=== PATIENT | female | born 1965 | race Hispanic/Latino ===

== ENCOUNTER → 2017-12-22 | Outpatient (REF) | payer OTHER ==
[2017-12-22 12:01] LABS: HEMATOCRIT 32.6 % (36.0-47.0); HEMOGLOBIN 10.1 g/dl (12.0-15.5); MEAN CORPUSCULAR VOLUME 90.3 fl (80.0-96.0); PLATELET COUNT, AUTOMATED 445 10^3/uL (150-450); RED BLOOD COUNT 3.61 10^6/uL (4.00-5.40); RED CELL DISTRIBUTION WIDTH 16.1 % (11.5-14.5); WHITE BLOOD COUNT 5.1 10^3/uL (4.0-10.0)
[2017-12-22 12:16] LABS: VITAMIN B12 LEVEL 421 PG/ML (247-911)
[2017-12-22 12:17] LABS: ALBUMIN 3.5 GM/DL (3.2-5.2); ALBUMIN/GLOBULIN RATIO 1.17 (1.00-1.93); ALKALINE PHOSPHATASE 98 U/L (45-117); ALT/SGPT 30 U/L (12-78); ANION GAP 8 MEQ/L (8-16); AST/SGOT 20 U/L (7-37); BILIRUBIN,TOTAL 0.3 MG/DL (0.2-1.0); BLOOD UREA NITROGEN 11 MG/DL (7-18); CALCIUM LEVEL 8.6 MG/DL (8.5-10.1); CARBON DIOXIDE LEVEL 28 MEQ/L (21-32); CHLORIDE LEVEL 108 MEQ/L (98-107); CHOLESTEROL LEVEL 174 MG/DL (<200); CHOLESTEROL RISK RATIO 2.852 (<5); CREATININE FOR GFR 0.55 MG/DL (0.55-1.30); FERRITIN 5 NG/ML (8-252); FOLATE 8.5 NG/ML (>5.4); FREE T4 0.79 NG/DL (0.76-1.46); GLOMERULAR FILTRATION RATE > 60.0 (>51); GLUCOSE, FASTING 87 MG/DL (70-100); HDL CHOLESTEROL 61 MG/DL (>40); IRON (FE) 25 UG/DL (50-170); LDL CHOLESTEROL 100.8 MG/DL (<100); NON-HDL-C 113 MG/DL; POTASSIUM SERUM 4.2 MEQ/L (3.5-5.1); SODIUM LEVEL 144 MEQ/L (136-145); TOTAL IRON BINDING CAPACITY 416 UG/DL (250-450); TOTAL PROTEIN 6.5 GM/DL (6.4-8.2); TRIGLYCERIDES LEVEL 61 MG/DL (<150)
[2017-12-22 12:54] LABS: HEPATITIS C VIRUS ABY INDEX 0.1 INDEX (<0.8)
[2017-12-22 12:55] LABS: HIV 1&2 SCREEN CENTAUR NEGATIVE (NEGATIVE)
[2017-12-22 13:48] LABS: CHLAMYDIA DNA AMPLIFICATION NEGATIVE (NEGATIVE); GC DNA AMPLIFICATION NEGATIVE (NEGATIVE)
[2017-12-22 14:49] LABS: ESTIMATED AVERAGE GLUCOSE 120 MG/DL (60-110); HEMOGLOBIN A1c 5.8 %
== END ==
LOC: M SFHCPLAZ 08:44
DX: Z98.84 Bariatric surgery status (principal); Z11.3 Encounter for screening for infections with a predominantly sexual mode of transmission; Z11.59 Encounter for screening for other viral diseases; E11.9 Type 2 diabetes mellitus without complications; Z11.4 Encounter for screening for human immunodeficiency virus [HIV]; Z13.220 Encounter for screening for lipoid disorders
CPT/HCPCS: 82746

== ENCOUNTER → 2017-12-31 | Outpatient (CLI) | payer OTHER | LOC: M RAD 08:12 | DX: Z12.31 Encounter for screening mammogram for malignant neoplasm of breast (principal) | CPT/HCPCS: 77067 ==

== ENCOUNTER → 2018-01-11 | Outpatient (CLI) | payer OTHER | LOC: M SMT 08:39 | DX: Z87.442 Personal history of urinary calculi (principal) ==

== ENCOUNTER → 2018-01-13 | Outpatient (CLI) | payer OTHER | LOC: M RAD 07:49 | DX: R16.0 Hepatomegaly, not elsewhere classified (principal) | CPT/HCPCS: 76705 ==

== ENCOUNTER → 2018-01-17 | Outpatient (CLI) | payer OTHER | LOC: M RAD 07:06 | DX: R51 Headache (principal) | CPT/HCPCS: 70551 ==

== ENCOUNTER → 2018-01-19 | Outpatient (REF) | payer OTHER ==
[2018-01-21 14:14] LABS: HPV HYBRID CAPTURE II Negative (Negative)
== END ==
LOC: M LAB REF 13:38
DX: Z12.4 Encounter for screening for malignant neoplasm of cervix (principal)

== ENCOUNTER → 2018-02-03 | Outpatient (CLI) | payer OTHER | LOC: M RAD 16:30 | DX: K76.89 Other specified diseases of liver (principal); Z53.8 Procedure and treatment not carried out for other reasons ==

== ENCOUNTER → 2018-02-22 | Outpatient (CLI) | payer OTHER ==
[2018-02-22 20:12] LABS: BLOOD UREA NITROGEN 11 MG/DL (7-18)
[2018-02-22 20:12] LABS: CREATININE FOR GFR 0.59 MG/DL (0.55-1.30); GLOMERULAR FILTRATION RATE > 60.0 (>51)
== END ==
LOC: M WUC 17:49
DX: Z01.812 Encounter for preprocedural laboratory examination (principal)

== ENCOUNTER → 2018-02-22 | Outpatient (CLI) | payer OTHER ==
[2018-02-22 20:01] LABS: HEMATOCRIT 32.9 % (36.0-47.0); HEMOGLOBIN 10.6 g/dl (12.0-15.5); MEAN CORPUSCULAR HGB CONC 32.2 g/dl (32.0-36.5); PLATELET COUNT, AUTOMATED 434 10^3/uL (150-450); RED BLOOD COUNT 3.78 10^6/uL (4.00-5.40); RED CELL DISTRIBUTION WIDTH 15.6 % (11.5-14.5); RETIC HEMOGLOBIN EQUIVALENT 30.1 pg (24-36); RETICULOCYTE # 38.6 10^9/L (17-77); WHITE BLOOD COUNT 7.4 10^3/uL (4.0-10.0)
[2018-02-22 20:44] LABS: FERRITIN 6 NG/ML (8-252); IRON (FE) 34 UG/DL (50-170); PERCENT SATURATION 8.5 % (13.2-45.0); TOTAL IRON BINDING CAPACITY 401 UG/DL (250-450)
[2018-02-22 20:53] LABS: TOTAL 25(OH) VITAMIN D 50.7 NG/ML (30.0-100.0)
== END ==
LOC: M WUC 17:51
DX: D50.9 Iron deficiency anemia, unspecified (principal); E55.9 Vitamin D deficiency, unspecified

== ENCOUNTER → 2018-02-24 | Outpatient (CLI) | payer OTHER ==
[~2018-02-24] MED LIST: PROHANCE 279.3MG/ML 15ML VIAL (A9576) As Ordered; PROHANCE 279.3MG/ML 5ML VIAL (A9576) As Ordered
== END ==
LOC: M RAD 07:53
DX: K44.9 Diaphragmatic hernia without obstruction or gangrene (principal); R16.0 Hepatomegaly, not elsewhere classified
CPT/HCPCS: A9576

== ENCOUNTER 2018-03-10 08:57 | Day surgery (SDC) | payer OTHER ==
[2018-03-10] MEDS ORDERED: PROPOFOL 200 MG/20 ML VIAL As Ordered ×2 (10:55→10:58)
== END 2018-03-10 11:50 | disposition home or self-care (01) ==
LOC: M OPP 11:50
DX: Z12.11 Encounter for screening for malignant neoplasm of colon (principal); E11.9 Type 2 diabetes mellitus without complications; D64.9 Anemia, unspecified; R23.3 Spontaneous ecchymoses; M12.9 Arthropathy, unspecified; Z79.899 Other long term (current) drug therapy; Z88.8 Allergy status to other drugs, medicaments and biological substances; Z91.030 Bee allergy status; Z98.84 Bariatric surgery status; Z87.442 Personal history of urinary calculi; Z98.890 Other specified postprocedural states
CPT/HCPCS: 45378

== ENCOUNTER → 2018-04-12 | Outpatient (REF) | payer OTHER | LOC: M SFHCPLAZ 10:20 | DX: J02.9 Acute pharyngitis, unspecified (principal) ==

== ENCOUNTER 2018-07-01 11:02 | Day surgery (SDC) | payer OTHER ==
[~2018-07-01] VITALS: Ht 170.2 cm; Wt 95.7 kg
[~2018-07-01 11:02] MED LIST changes: +ALBU83IN INH; +CYCL5TAB PO; +DULO30CA47 PO; +EPIN0.3I11; +FERR140T2 PO; +GABA-843 PO; +HYDR200T3; +IMIT50TA PO; +LIDOCAINE 2% INJ 100 MG/5 ML SDV (FOR ANES.) As Ordered ONE; +MONT10TA2 PO; +PROAAER10; -PROHANCE 279.3MG/ML 15ML VIAL (A9576) As Ordered; -PROHANCE 279.3MG/ML 5ML VIAL (A9576) As Ordered; +PROPOFOL 200 MG/20 ML VIAL As Ordered ONE; +VITA50005 PO; +VITA500T3 PO
[2018-07-01] MEDS ORDERED: NS 1,000 ML IV ONE (12:00)
[2018-07-01] MEDS ORDERED: PROPOFOL 200 MG/20 ML VIAL As Ordered ONE ×2 (13:26→13:43)
--- NOTE | 2018-07-01 13:46 | ROOR ---
Patient Name: Madhuri Nicole Procedure Date: 07/01/2018 1:01 PM Date of : 1965 Age: 52 Room: [facility] Gender: Female Note Status: Finalized Procedure: Upper GI endoscopy Indications: Iron deficiency anemia Providers: Anuj CONDON MD Referring MD: KATARZYNA NORRIS Requesting Provider: Medicines: Monitored Anesthesia Care Complications: No immediate complications. Procedure: Pre-Anesthesia Assessment: - The heart rate, respiratory rate, oxygen saturations, blood pressure, adequacy of pulmonary ventilation, and response to care were monitored throughout the procedure. The Endoscope was introduced through the mouth, and advanced to the jejunum. The upper GI endoscopy was accomplished without difficulty. The patient tolerated the procedure well. Findings: The examined esophagus was normal. 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 The gastrojejunal anastomosis was characterized by healthy appearing mucosa. The examined jejunum was normal. Biopsies for histology were taken with a cold forceps for evaluation of celiac disease. Impression: - Normal esophagus. - Lloyd-en-Y gastrojejunostomy with gastrojejunal anastomosis characterized by healthy appearing mucosa. - Tubular appearance of gastric remnant, but this is otherwise normal. Biopsied to confirm gastric mucosa. - Normal examined jejunum. Biopsied. Recommendation: - Await pathology results. - Telephone endoscopist for pathology results in 2 weeks. - Recommend an iron supplement for the rest of the patient's life. - Return to referring physician as previously scheduled. Anuj Condon MD Anuj CONDON MD 07/01/2018 1:45:42 PM This report has been signed electronically. Number of Addenda: 0 Note Initiated On: 07/01/2018 1:01 PM Estimated Blood Loss: Estimated blood loss: none.
--- NOTE | 2018-07-01 13:49 | ROOR ---
Patient Name: Madhuri Nicole Procedure Date: 07/01/2018 1:01 PM Date of : 1965 Age: 52 Room: [facility] Gender: Female Note Status: Finalized Procedure: Colonoscopy Indications: Iron deficiency anemia Providers: Anuj CONDON MD Referring MD: KATARZYNA NORRIS Requesting Provider: Medicines: Monitored Anesthesia Care Complications: No immediate complications. Procedure: Pre-Anesthesia Assessment: - The heart rate, respiratory rate, oxygen saturations, blood pressure, adequacy of pulmonary ventilation, and response to care were monitored throughout the procedure. The Colonoscope was introduced through the anus and advanced to 5 cm into the ileum. The colonoscopy was performed without difficulty. The patient tolerated the procedure well. The quality of the bowel preparation was fair. Findings: The perianal and digital rectal examinations were normal. A 10 mm polyp was found in the splenic flexure. The polyp was semi-sessile. The polyp was removed with a cold snare. Resection and retrieval were complete. The colon (entire examined portion) was redundant. The exam was otherwise without abnormality on direct and retroflexion views. Impression: - Preparation of the colon was fair. - One 10 mm polyp at the splenic flexure, removed with a cold snare. Resected and retrieved. - Redundant colon. - The examination was otherwise normal on direct and retroflexion views. Recommendation: - Repeat colonoscopy in 3 years because the bowel preparation was suboptimal. - Repeat colonoscopy in 3 years for adenoma surveillance. - (Will need additional preparation for next colonoscopy) Anuj Condon MD Anuj CONDON MD 07/01/2018 1:48:22 PM This report has been signed electronically. Number of Addenda: 0 Note Initiated On: 07/01/2018 1:01 PM Estimated Blood Loss: Estimated blood loss: none.
[2018-07-01 14:05] VITALS: BP 122/67
== END 2018-07-01 14:18 | disposition home or self-care (01) ==
LOC: M OPP 11:02
PROVIDERS: ATTEND Internal Medicine Gastroenterology
DX: D50.9 Iron deficiency anemia, unspecified (principal); D12.3 Benign neoplasm of transverse colon; Q43.8 Other specified congenital malformations of intestine; G47.30 Sleep apnea, unspecified; Z98.0 Intestinal bypass and anastomosis status; Z79.899 Other long term (current) drug therapy; Z88.0 Allergy status to penicillin; Z91.030 Bee allergy status; Z87.891 Personal history of nicotine dependence

== ENCOUNTER → 2018-07-20 | Outpatient (CLI) | payer OTHER ==
[~2018-07-20] MED LIST changes: -LIDOCAINE 2% INJ 100 MG/5 ML SDV (FOR ANES.) As Ordered ONE; -PROPOFOL 200 MG/20 ML VIAL As Ordered ONE
[2018-07-20 19:43] LABS: HEMOGLOBIN 11.2 g/dl (12.0-15.5); MEAN CORPUSCULAR HEMOGLOBIN 29.7 pg (27.0-33.0); MEAN CORPUSCULAR VOLUME 92.8 fl (80.0-96.0); PLATELET COUNT, AUTOMATED 372 10^3/uL (150-450); RED BLOOD COUNT 3.77 10^6/uL (4.00-5.40); WHITE BLOOD COUNT 7.3 10^3/uL (4.0-10.0)
[2018-07-20 20:29] LABS: TOTAL 25(OH) VITAMIN D 23.4 NG/ML (30.0-100.0)
== END ==
LOC: M WUC 16:24
PROVIDERS: ATTEND Physician Assistant
DX: E55.9 Vitamin D deficiency, unspecified (principal); D50.9 Iron deficiency anemia, unspecified

== ENCOUNTER → 2018-07-21 | Outpatient (CLI) | payer OTHER ==
--- NOTE | 2018-07-21 20:15 | REP ---
Lumbar spine five views: Vertebral body heights, interspacing alignment are normal. There is no spondylolysis. There is mild grade 1 L4 spondylolisthesis, likely degenerative. There is facet osteoarthritis, more advanced at the lower lumbar levels. The pedicles and sacroiliac articulations are unremarkable. There is an IUD in the pelvis. There are surgical clips superimposed over the sacrum and in the abdominal left upper quadrant. Impression: Facet osteoarthritis. Mild grade 1 degenerative L4 spondylolisthesis. Electronically Signed by Alen Rosenberg MD 07/21/2018 08:06 P
== END ==
LOC: M WUC 17:16
PROVIDERS: ATTEND Physician Assistant
DX: M47.896 Other spondylosis, lumbar region (principal); M51.36 Other intervertebral disc degeneration, lumbar region

== ENCOUNTER → 2018-11-23 | Outpatient (CLI) | payer OTHER ==
[~2018-11-23] MED LIST changes: +CYAN500T8 PO; -VITA500T3 PO
--- NOTE | 2018-11-23 16:07 | REP ---
Left knee six views : There is no fracture or dislocation. Mineralization and joint spaces are normal. There are no calcifications or foreign bodies. Impression: Negative left knee . Electronically Signed by Alen Rosenberg MD 11/23/2018 12:55 P
== END ==
LOC: M LRY 12:39
PROVIDERS: ATTEND Nurse Practitioner Family
DX: S89.92XA Unspecified injury of left lower leg, initial encounter (principal)

== ENCOUNTER → 2018-12-10 | Outpatient (CLI) | payer OTHER ==
[2018-12-10 17:27] LABS: HEMOGLOBIN A1c 5.8 %
== END ==
LOC: M WUC 11:01
PROVIDERS: ATTEND Family Medicine
DX: E11.9 Type 2 diabetes mellitus without complications (principal)

== ENCOUNTER → 2018-12-10 | Outpatient (CLI) | payer OTHER ==
[2018-12-10 17:08] LABS: HEMATOCRIT 40.4 % (36.0-47.0); HEMOGLOBIN 13.2 g/dl (12.0-15.5); MEAN CORPUSCULAR HEMOGLOBIN 31.7 pg (27.0-33.0); MEAN CORPUSCULAR HGB CONC 32.7 g/dl (32.0-36.5); MEAN CORPUSCULAR VOLUME 97.1 fl (80.0-96.0); PLATELET COUNT, AUTOMATED 337 10^3/uL (150-450); RED BLOOD COUNT 4.16 10^6/uL (4.00-5.40); WHITE BLOOD COUNT 7.1 10^3/uL (4.0-10.0)
[2018-12-10 17:13] LABS: ALBUMIN 3.8 GM/DL (3.2-5.2); ALT/SGPT 25 U/L (12-78); BILIRUBIN,TOTAL 0.4 MG/DL (0.2-1.0); BLOOD UREA NITROGEN 9 MG/DL (7-18); CALCIUM LEVEL 8.3 MG/DL (8.5-10.1); CARBON DIOXIDE LEVEL 27 MEQ/L (21-32); CHLORIDE LEVEL 109 MEQ/L (98-107); CHOLESTEROL LEVEL 171 MG/DL (<200); CHOLESTEROL RISK RATIO 2.671 (<5); CREATININE FOR GFR 0.61 MG/DL (0.55-1.30); FERRITIN 10 NG/ML (8-252); FREE T4 0.87 NG/DL (0.76-1.46); GLOMERULAR FILTRATION RATE > 60.0 (>51); GLUCOSE, FASTING 80 MG/DL (70-100); HDL CHOLESTEROL 64 MG/DL (>40); IRON (FE) 80 UG/DL (50-170); LDL CHOLESTEROL 95 MG/DL (<100); NON-HDL-C 107 MG/DL; PERCENT SATURATION 20.2 % (13.2-45.0); POTASSIUM SERUM 3.8 MEQ/L (3.5-5.1); SODIUM LEVEL 143 MEQ/L (136-145); TOTAL IRON BINDING CAPACITY 397 UG/DL (250-450); TRIGLYCERIDES LEVEL 62 MG/DL (<150)
[2018-12-12 11:53] LABS: TOTAL 25(OH) VITAMIN D 25.9 NG/ML (30.0-100.0)
[2018-12-12 11:54] LABS: FOLATE 7.5 NG/ML (>5.4); VITAMIN B12 LEVEL 400 PG/ML (247-911)
== END ==
LOC: M WUC 11:03
PROVIDERS: ATTEND Physician Assistant
DX: D50.9 Iron deficiency anemia, unspecified (principal); E78.5 Hyperlipidemia, unspecified; E55.9 Vitamin D deficiency, unspecified; Z98.84 Bariatric surgery status

== ENCOUNTER → 2018-12-21 | Outpatient (CLI) | payer OTHER ==
[2018-12-21 11:09] LABS: MALB URINE SIEMENS 19.5 MG/L; MAU/CREAT RATIO 13.8 MCG/MG (0.0-30.0)
--- NOTE | 2018-12-21 11:16 | REP ---
REASON FOR EXAM: Right flank pain. COMPARISON: Exam from an outside institution of 11/02/2014. The lung bases are clear and unchanged. Limited evaluation of the solid intra-abdominal organs and gallbladder shows no significant change from the prior exam. Limited evaluation of the pancreas, adrenal glands, and kidneys shows no gross abnormalities. Calcification seen previously in the left kidney is no longer present. There is no hydronephrosis or hydroureter. There are no ureteroliths. The calcification seen previously in the proximal left ureter is no longer present. There are no urinary bladder calcifications. There is a T-shaped radiodensity in the uterus, consistent with an IUD. This was not present on the prior exam. There is no free fluid or free air in the abdomen or pelvis. The abdominal aorta and para-aortic regions are unchanged, and again seen to be within normal limits. Limited evaluation of the intra-abdominal and intrapelvic bowel loops and their mesenteries shows no gross abnormalities. There is no free fluid or free air. The appendix is unremarkable in appearance. There has been previous bariatric surgery. Bone window technique throughout the exam shows the osseous structures to be stable and intact. Chronic spinal degenerative changes are noted, status quo. IMPRESSION: There is no evidence of acute intra-abdominal or intrapelvic disease. The appendix has increased in size from the prior exam, however, there is no fatty infiltration in the mesoappendix and there is no free fluid in the mesoappendix. There is no abnormal pericecal fatty infiltration. The finding is equivocal for acute appendicitis and needs to be correlated clinically. Electronically Signed by Froylan Last DO 12/21/2018 12:33 P
== END ==
LOC: M RAD 09:43
PROVIDERS: ATTEND Family Medicine
DX: E11.9 Type 2 diabetes mellitus without complications (principal)

== ENCOUNTER → 2019-01-23 | Outpatient (REF) | payer OTHER ==
[2019-01-25 15:34] LABS: HPV HYBRID CAPTURE II Negative (Negative)
== END ==
LOC: M LAB REF 20:13
PROVIDERS: ATTEND Advanced Practice Midwife
DX: Z12.4 Encounter for screening for malignant neoplasm of cervix (principal)
CPT/HCPCS: 87624; G0123

== ENCOUNTER → 2019-01-24 | Outpatient (CLI) | payer OTHER ==
--- NOTE | 2019-01-24 08:04 | REP ---
BILATERAL SCREENING DIGITAL MAMMOGRAM WITH 3D TOMOSYNTHESIS: There are no palpable abnormalities or other breast complaints. The the patient states she had a clinical breast examination January 27, 2019. The Tyrer-Cuzick Score is: 12.6% . Comparisons are 02/07/2016 and 12/31/2017. There are scattered areas of fibroglandular density. There is no dominant mass, micro calcific cluster or architectural distortion that would indicate malignancy. There are no additional findings on 3D tomosynthesiss. There is no change from the prior study. Impression: BIRADS/ACR category 1 mammogram. Negative. Recommendation: Routine annual screening mammography. This mammogram was interpreted with the aid of a FDA approved computer-aided detection system. A. Negative mammogram reports should not delay biopsy if a dominant or clinically suspicious mass is present. B. Not all breast cancers are identified by mammography or tomosynthesis. C. Adenosis and dense breasts may obscure an underlying neoplasm. Patient letter M1. Electronically Signed by Alen Rosenberg MD 01/24/2019 07:56 A
== END ==
LOC: M RAD 07:05
PROVIDERS: ATTEND Advanced Practice Midwife
DX: Z12.31 Encounter for screening mammogram for malignant neoplasm of breast (principal)

== ENCOUNTER → 2019-10-20 | Outpatient (CLI) | payer OTHER ==
[~2019-10-20] MED LIST changes: -MONT10TA2 PO; +MONT10TA4 PO
--- NOTE | 2019-10-20 16:27 | REP ---
LEFT SHOULDER, THREE VIEWS: There is no evidence of an acute fracture, dislocation or intrinsic bone disease. IMPRESSION: No fracture or dislocation. Electronically Signed by Alen Leal MD 10/24/2019 06:47 P
--- NOTE | 2019-10-20 16:59 | REP ---
LEFT ELBOW, FOUR VIEWS: Four views, left elbow performed. There is a nondisplaced fracture of the radial head, which is intra-articular. No other acute fracture or dislocation is seen. Small calcific density at the medial joint margin probably represents a ligamentous calcification or old avulsion fracture. There is no associated joint effusion. IMPRESSION: Nondisplaced radial head fracture. Fracture is intra-articular. Electronically Signed by Alen Leal MD 10/24/2019 06:51 P
== END ==
LOC: M LRY 15:25
PROVIDERS: ATTEND Nurse Practitioner Family
DX: S52.125A Nondisplaced fracture of head of left radius, initial encounter for closed fracture (principal); S49.92XA Unspecified injury of left shoulder and upper arm, initial encounter

== ENCOUNTER → 2020-01-09 | Outpatient (CLI) | payer OTHER ==
[~2020-01-09] MED LIST changes: +AMBI5TAB PO; +D31000TA2 PO; +MULTCAP PO; +PERCOCET PO
[2020-01-09 12:51] LABS: BASO % 0.7 % (0.0-1.0); EOS # 0.2 10^3/uL (0.0-0.5); EOS % 2.5 % (0.0-3.0); HEMATOCRIT 38.3 % (36.0-47.0); HEMOGLOBIN 12.3 g/dl (12.0-15.5); LYMPH # 2.3 10^3/uL (1.5-5.0); LYMPH % 38.6 % (24.0-44.0); MEAN CORPUSCULAR HEMOGLOBIN 30.8 pg (27.0-33.0); MEAN CORPUSCULAR HGB CONC 32.1 g/dl (32.0-36.5); MEAN CORPUSCULAR VOLUME 95.8 fl (80.0-96.0); MONO # 0.6 10^3/uL (0.0-0.8); NEUTROPHILS # 2.8 10^3/uL (1.5-8.5); NEUTROPHILS % 47.9 % (36.0-66.0); PLATELET COUNT, AUTOMATED 373 10^3/uL (150-450); WHITE BLOOD COUNT 5.9 10^3/uL (4.0-10.0)
[2020-01-09 13:06] LABS: ALBUMIN 3.5 GM/DL (3.2-5.2); ALT/SGPT 20 U/L (12-78); BILIRUBIN,TOTAL 0.5 MG/DL (0.2-1.0); BLOOD UREA NITROGEN 13 MG/DL (7-18); CALCIUM LEVEL 8.6 MG/DL (8.5-10.1); CARBON DIOXIDE LEVEL 27 MEQ/L (21-32); CHLORIDE LEVEL 111 MEQ/L (98-107); CHOLESTEROL LEVEL 177 MG/DL (<200); CREATININE FOR GFR 0.68 MG/DL (0.55-1.30); FERRITIN 8 NG/ML (8-252); FOLATE 5.3 NG/ML (>5.4); GLOMERULAR FILTRATION RATE > 60.0 (>51); GLUCOSE, FASTING 93 MG/DL (70-100); HDL CHOLESTEROL 56 MG/DL (>40); IRON (FE) 141 UG/DL (50-170); LDL CHOLESTEROL 106 MG/DL (<100); NON-HDL-C 121 MG/DL; PERCENT SATURATION 41.7 % (13.2-45.0); PHOSPHORUS LEVEL 3.2 MG/DL (2.5-4.9); POTASSIUM SERUM 4.2 MEQ/L (3.5-5.1); SODIUM LEVEL 143 MEQ/L (136-145); TOTAL 25(OH) VITAMIN D 14.1 NG/ML (30.0-100.0); TOTAL IRON BINDING CAPACITY 338 UG/DL (250-450); TOTAL PROTEIN 6.5 GM/DL (6.4-8.2); TRIGLYCERIDES LEVEL 75 MG/DL (<150); VITAMIN B12 LEVEL 403 PG/ML (247-911)
[2020-01-09 13:35] LABS: HEMOGLOBIN A1c 5.8 %
== END ==
LOC: M PLALAB 08:11
PROVIDERS: ATTEND Family Medicine
DX: E11.9 Type 2 diabetes mellitus without complications (principal); D50.9 Iron deficiency anemia, unspecified; E55.9 Vitamin D deficiency, unspecified; K91.2 Postsurgical malabsorption, not elsewhere classified

== ENCOUNTER → 2020-02-07 | Outpatient (CLI) | payer OTHER ==
[2020-02-07 08:55] LABS: BASO # 0.1 10^3/uL (0.0-0.2); BASO % 0.7 % (0.0-1.0); EOS # 0.1 10^3/uL (0.0-0.5); EOS % 1.4 % (0.0-3.0); HEMATOCRIT 39.9 % (36.0-47.0); HEMOGLOBIN 12.9 g/dl (12.0-15.5); LYMPH # 2.8 10^3/uL (1.5-5.0); LYMPH % 39.2 % (24.0-44.0); MEAN CORPUSCULAR HEMOGLOBIN 30.6 pg (27.0-33.0); MEAN CORPUSCULAR HGB CONC 32.3 g/dl (32.0-36.5); MEAN CORPUSCULAR VOLUME 94.5 fl (80.0-96.0); MONO # 0.8 10^3/uL (0.0-0.8); MONO % 10.6 % (0.0-5.0); NEUTROPHILS # 3.4 10^3/uL (1.5-8.5); PLATELET COUNT, AUTOMATED 326 10^3/uL (150-450); RED BLOOD COUNT 4.22 10^6/uL (4.00-5.40); WHITE BLOOD COUNT 7.1 10^3/uL (4.0-10.0)
[2020-02-07 09:22] LABS: BLOOD UREA NITROGEN 11 MG/DL (7-18); CALCIUM LEVEL 8.3 MG/DL (8.5-10.1); CARBON DIOXIDE LEVEL 26 MEQ/L (21-32); CHLORIDE LEVEL 110 MEQ/L (98-107); CREATININE FOR GFR 0.56 MG/DL (0.55-1.30); GLOMERULAR FILTRATION RATE > 60.0 (>51); GLUCOSE, FASTING 87 MG/DL (70-100); POTASSIUM SERUM 4.3 MEQ/L (3.5-5.1); SODIUM LEVEL 142 MEQ/L (136-145)
== END ==
LOC: M LAB 07:43
PROVIDERS: ATTEND Family Medicine
DX: Z01.812 Encounter for preprocedural laboratory examination (principal)

== ENCOUNTER → 2020-02-10 | Outpatient (CLI) | payer OTHER | LOC: M LABSMTC 09:43 | PROVIDERS: ATTEND Anesthesiology | DX: Z01.812 Encounter for preprocedural laboratory examination (principal); Z20.828 Contact with and (suspected) exposure to other viral communicable diseases ==

== ENCOUNTER 2020-02-15 05:58 | Day surgery (SDC) | payer OTHER, SELFPAY ==
[~2020-02-15] VITALS: Ht 170.2 cm; Wt 102.1 kg
[~2020-02-15 05:58] MED LIST changes: -PERCOCET PO
[2020-02-15] MEDS ORDERED: HEPARIN SOD (PORCINE) 5000UNITS/ML 1ML VIAL/SYRINGE SQ ONE (06:00)
[2020-02-15] MEDS ORDERED: CLINDAMYCIN 600 MG in IV 1 EA IV ONE (06:00)
[2020-02-15] MEDS ORDERED: LR 1,000 ML IV ONE (06:00)
[2020-02-15] MEDS ORDERED: SCOPOLAMINE 1MG TRANSDERMAL PATCH As Ordered ONE (07:00)
[2020-02-15] MEDS ORDERED: EPINEPHrine INJ 1 MG/ML 1ML AMP As Ordered ONE (07:17)
[2020-02-15] MEDS ORDERED: LIDOCAINE 1% MDV 20ML VIAL As Ordered ONE (07:17)
[2020-02-15] MEDS ORDERED: BUPIVACAINE LIPOSOME/PF 1.3% 20ML VIAL (13.3MG/ML)(EXPAREL)(C9290 PER1MG) As Ordered ONE (07:18)
[2020-02-15] MEDS ORDERED: BACITRACIN PWD 50,000 UNITS VIAL As Ordered ONE (07:18)
[2020-02-15] MEDS ORDERED: SCOPOLAMINE 1MG TRANSDERMAL PATCH TOP ONE (08:00)
[2020-02-15] MEDS ORDERED: ROCURONIUM BROMIDE 50 MG/5 ML VIAL As Ordered ONE ×2 (08:20→10:14)
[2020-02-15] MEDS ORDERED: DESFLURANE 240 ML INHALANT As Ordered ONE ×2 (08:20→09:31)
[2020-02-15] MEDS ORDERED: ONDANSETRON 4MG/2ML VIAL As Ordered ONE (08:20)
[2020-02-15] MEDS ORDERED: dexameTHASONE 4 MG/ML 1ML VIAL (J1100 PER 1MG) As Ordered ONE (08:20)
[2020-02-15] MEDS ORDERED: propofoL 200 MG/20 ML VIAL As Ordered ONE (08:20)
[2020-02-15] MEDS ORDERED: SUGAMMADEX SODIUM 500 MG/5 ML VIAL (BRIDION) As Ordered ONE (08:20)
[2020-02-15] MEDS ORDERED: METOCLOPRAMIDE INJ 10MG/2ML VIAL (J2765 PER 1) As Ordered ONE (08:20)
[2020-02-15] MEDS ORDERED: MIDAZOLAM INJ 2MG/2ML VIAL (J2250 PER 1MG) As Ordered ONE (08:20)
[2020-02-15] MEDS ORDERED: fentaNYL 250 MCG/5 ML INJECTION (J3010) As Ordered ONE (08:20)
[2020-02-15] MEDS ORDERED: LIDOCAINE 2% 100MG/5ML SDV (FOR ANES.) As Ordered ONE (08:20)
[2020-02-15] MEDS ORDERED: ACETAMINOPHEN 1000MG 100ML IV BTL (OFIRMEV) (J0131 PER 10MG) As Ordered ONE (08:25)
[2020-02-15] MEDS ORDERED: ePHEDrine SULFATE 25 MG/5 ML(5MG/ML) SYRINGE As Ordered ONE ×2 (08:29→09:19)
[2020-02-15] MEDS ORDERED: HYDROmorphone HCL 2 MG/ML 1ML VIAL (J1170) As Ordered ONE (08:54)
[2020-02-15] MEDS ORDERED: GLYCOPYRROLATE INJ 0.2 MG/ML 2 ML VIAL As Ordered ONE (09:25)
[2020-02-15] MEDS ORDERED: ALBUTEROL 6.7GM INHALER **FOR ANES. CART/OMNICELL ONLY As Ordered ONE (10:18)
[2020-02-15] MEDS: LR 1,000 ML IV SCH (11:40)
--- NOTE | 2020-02-15 11:40 | POST-OPPD ---
Postoperative Procedure Note Date Of Procedure: Feb 15, 2020 PREOPERATIVE DIAGNOSIS: Bilateral breast hypertrophy POSTOPERATIVE DIAGNOSIS: same FINDINGS: large breasts PROCEDURE: Bilateral breast reduction SURGEON: Dr Pathak ANESTHESIA: General SPECIMENS: Right breast 558 gm, Left breast 419 gm, liposuction fluid 300cc ESTIMATED BLOOD LOSS: 100cc REPLACED: none DRAINS: 10 mm JOHN drains x 2 COMPLICATIONS: none POSTOPERATIVE CONDITION: stable Dict [id number] IVON PATHAK DO Feb 15, 2020 11:40
[2020-02-15] MEDS: MEPERIDINE INJ 25 MG/ML VIAL (J2175) IV PRN ×2 (11:42→12:00)
[2020-02-15] MEDS ORDERED: MEPERIDINE INJ 25 MG/ML VIAL (J2175) As Ordered ONE (11:43)
[2020-02-15] MEDS ORDERED: SUMAtriptan SUCCINATE 25 MG TAB PO ONE (11:45)
[2020-02-15] MEDS ORDERED: ACETAMINOPHEN TAB 650MG DOSE (2X325MG) PO PRN (11:45)
[2020-02-15] MEDS ORDERED: ALBUTEROL SULFATE 2.5 MG/0.5 ML INH NEB SOLN NEB PRN ×2 (11:45)
[2020-02-15] MEDS ORDERED: MORPHINE 4 MG/ML 1ML VIAL/SYRINGE (J2270) IV PRN (11:45)
[2020-02-15] MEDS ORDERED: ONDANSETRON 4MG/2ML VIAL IV PRN ×2 (11:45→12:15)
[2020-02-15] MEDS ORDERED: METOCLOPRAMIDE INJ 10MG/2ML VIAL (J2765 PER 1) IV PRN (12:15)
[2020-02-15] MEDS ORDERED: HYDROMORPHONE HCL 0.5 MG/ 0.5 ML SYRINGE (J1170 PER 1) IV PRN (12:15)
[2020-02-15] MEDS ORDERED: oxyCODONE 5MG TAB PO PRN (12:15)
[2020-02-15] MEDS ORDERED: ALBUTEROL SULFATE 2.5 MG/0.5 ML INH NEB SOLN INH ONE (12:15)
[2020-02-15] MEDS ORDERED: LR 1,000 ML IV SCH (12:15)
[2020-02-15] MEDS ORDERED: SUMAtriptan SUCCINATE 25 MG TAB PO PRN (13:00)
[2020-02-15] MEDS: fentaNYL 100 MCG/2 ML INJECTION (J3010) IV PRN ×2 (13:10→13:15)
[2020-02-15 13:45] VITALS: BP 138/77
[2020-02-15] MEDS: ALBUTEROL SULFATE 2.5 MG/0.5 ML INH NEB SOLN NEB SCH ×2 (14:00→19:56)
[2020-02-15 14:15] VITALS: BP 134/78
[2020-02-15] MEDS: PERCOCET 5MG/325MG TAB PO PRN ×2 (15:45→19:41)
[2020-02-15 16:15] VITALS: BP 105/60
[2020-02-15 17:15] VITALS: BP 107/60
[2020-02-15 18:15] VITALS: BP 110/60
[2020-02-15 22:00] VITALS: BP 129/75
[2020-02-16] MEDS: PERCOCET 5MG/325MG TAB PO PRN ×3 (00:34→09:05)
[2020-02-16] MEDS: LR 1,000 ML IV SCH (01:39)
[2020-02-16 02:00] VITALS: BP 110/64
[2020-02-16] MEDS: ALBUTEROL SULFATE 2.5 MG/0.5 ML INH NEB SOLN NEB SCH ×2 (02:00→07:32)
[2020-02-16 06:00] VITALS: BP 109/67
[2020-02-16] MEDS ORDERED: MONTELUKAST 10 MG TAB PO SCH (09:00)
[2020-02-16] MEDS ORDERED: MIRALAX *UNIT DOSE* 17GM PACKET PO SCH (09:00)
--- NOTE | 2020-02-16 11:50 | IPNPDOC ---
Subjective General Date Seen: Feb 16, 2020 Subject Chief Complaint/History The patient is a 54-year-old female admitted with a reason for visit of Bilateral Breast Hypertrophy. S/p BBR POD 1. Doing well. Pain controlled. Current Medications Current Medications Current Medications Medications (Trade) Dose Ordered Sig/Perfecto Route PRN Reason Start Time Stop Time Status Last Admin Dose Admin Acetaminophen (Tylenol Tab) 650 mg Q6H PRN PO MILD PAIN (PS 1-4) 02/15/20 11:45 Albuterol Sulfate (Proventil Neb) 2.5 mg Q2HP PRN NEB SOB/WHEEZING 02/15/20 11:45 Albuterol Sulfate (Proventil Neb) 2.5 mg Q6HP PRN NEB SOB/WHEEZING 02/15/20 11:45 02/15/20 12:28 DC Albuterol Sulfate (Proventil Neb) 2.5 mg RQ6H NEB 02/15/20 14:00 02/16/20 07:32 Fentanyl Citrate (Sublimaze) 25 mcg Q5MP PRN IV PAIN LEVEL 5-10 02/15/20 12:15 02/15/20 13:15 DC 02/15/20 13:15 Hydromorphone HCl (Dilaudid) 0.4 mg Q5MP PRN IV PAIN LEVEL 4-7 02/15/20 12:15 02/15/20 13:15 DC Lactated Ringer's 1,000 ml @ 75 mls/hr [id number] IV 02/15/20 11:40 02/16/20 01:39 Lactated Ringer's 1,000 ml @ 100 mls/hr Q10H IV 02/15/20 12:15 02/15/20 13:15 DC 02/15/20 11:34 Meperidine HCl (Demerol) 12.5 mg Q5MP PRN IV SHIVERING 02/15/20 12:15 02/15/20 12:21 DC 02/15/20 12:00 Metoclopramide HCl (REGLAN INJection) 10 mg Q6HP PRN IV NAUSEA OR VOMITING 02/15/20 12:15 02/15/20 13:15 DC Montelukast Sodium (Singulair) 10 mg QAM PO 02/16/20 09:00 02/16/20 09:05 Morphine Sulfate (Morphine Sulfate Inj) 4 mg Q4HP PRN IV SEVERE PAIN (PS 8-10) 02/15/20 11:45 02/15/20 20:42 Ondansetron HCl (ZOFRAN INJection) 4 mg Q4H PRN IV NAUSEA OR VOMITING 02/15/20 11:45 Ondansetron HCl (ZOFRAN INJection) 4 mg Q4HP PRN IV NAUSEA OR VOMITING 02/15/20 12:15 02/15/20 13:15 DC Oxycodone HCl (Roxicodone, Oxyir) 5 mg ASDIRECTED PRN PO PAIN LEVEL 1-4 02/15/20 12:15 02/15/20 13:15 DC 02/15/20 13:09 Oxycodone/ Acetaminophen (Percocet 5mg/ 325mg Tablet) 1 tab Q4HP PRN PO MILD/MODERATE PAIN (PS 1-7) 02/15/20 11:45 02/16/20 09:05 Polyethylene Glycol (Miralax) 1 pkt DAILY PO 02/16/20 09:00 02/16/20 09:05 Sumatriptan Succinate (Imitrex) 50 mg Q2HP PRN PO HEADACHE 02/15/20 13:00 Allergies Coded Allergies: Penicillins (Verified Allergy, Severe, anaphylaxis, 02/08/20) bee venom protein (honey bee) (Verified Allergy, Severe, ANAPHYLAXIS, 02/08/20) Objective Physical Examination Examination GENERAL APPEARANCE:Patient seen, laying in bed, awake, alert, and oriented. Comfortable, in no acute distress. SKIN: Warm and moist. BREAST: Right and left soft, non-tender incisions intact. JOHN drains: 25/25cc/24 hr. NAC: Viable, warm, symmetrical, mild post-op ecchymosis, no expanding hematoma. HEENT: Normocephalic, atraumatic. [place] palpebral conjunctiva, anicteric sclerae. Lips and mucosa appear moist. NECK: Supple, no thyromegaly. No obvious jugular venous distention. LUNGS: Clear to auscultation bilaterally. No wheezing appreciated. HEART: No chest wall abnormalities. Regular rate and rhythm with no murmurs appreciated. ABDOMEN: Abdomen is soft, non-tender, non-distended. EXTREMITIES: No edema identified. No calf tenderness. Vital Signs Vital Signs Date Time Temp Pulse Resp B/P (MAP) Pulse Ox O2 Delivery O2 Flow Rate FiO2 10/9/20 09:35 19 02/16/20 06:00 97.8 65 109/67 (81) 95 Room Air 02/15/20 13:15 2.0 I&Os I&O- Last 24 Hours up to 6 AM 02/16/20 06:00 Intake Total 5030 ml Output Total 870 ml Balance 4160 ml Impression S/p BBR pod 1 Doing well Stable for discharge Monitor drains at home. F/up plastic surgery Incentive spirometry Plan / VTE VTE Prophylaxis Ordered?: Yes IVON PATHAK DO Feb 16, 2020 11:50
[2020-02-16] MEDS ORDERED: PERCOCET PO (11:54)
--- NOTE | 2020-02-20 09:13 | RO ---
DATE OF OPERATION: 02/15/2020 PREOPERATIVE DIAGNOSIS: Bilateral breast hypertrophy. POSTOPERATIVE DIAGNOSIS: Bilateral breast hypertrophy. PROCEDURE: Bilateral breast reduction. ATTENDING SURGEON: Dr. Soliz ANESTHESIA: General. SPECIMEN: Right breast, 558 grams, left breast 419 grams, liposuction fluid, 300 mL. BLOOD LOSS: 100 mL. No replacement. DRAINS: Amos-Norwood drains 10 mm times two. COMPLICATIONS: None. DESCRIPTION OF PROCEDURE: This is a 54-year-old female, status post gastric bypass. Patient lost a significant amount of weight. Her breasts have significant ptosis and asymmetry, and she wishes to have a lift and a breast reduction together. She is a good candidate for this procedure. Risks, benefits, and alternatives were discussed with the patient in detail. She has a tattoo on the left breast, which will be in the way of our surgical planning, which patient has agreed that it will be partially excised. Also there is a pierced nipple on the right side. The piercing is removed prior to surgery, and she knows that the hole most likely will close or be oriented differently postoperatively. The day of surgery, she was marked in the holding area in the upright position according to superomedial pedicle fashion, and then she was then brought into the operating room and placed in supine position. Preoperative antibiotics were given. Sequentials placed on the lower calves. Heparin 5000 units was given subcutaneous, and general anesthesia was induced. She was prepped and draped in the usual sterile fashion. We started our procedure on the right side, which was the bigger side. We outlined nipple areolar complex at 45 mm in diameter. An incision was started according to superomedial pedicle. We scored the skin initially, and then the skin was resected using electrocautery as well as PEAK cautery. Hemostasis was obtained using electrocautery as well. The was irrigated. Exparel 8 mL was given into the right pectoralis muscle, and then we started our closure. The nipple areolar complex is going to be at 21 cm from the sternal notch. The mound was recreated using 0 Vicryl sutures as conforming sutures. The vertical limb was closed, and it is 9 cm in length. The vertical limb was closed with interrupted 3-0 Monocryl sutures. Excess tissue was measured, tailored, and resected, creating the horizontal scar. A 10 mm Amos-Norwood drain was placed through the lateral portion of the horizontal scar. Nipple areolar complex was sutured in with interrupted 3-0 and 4-0 Monocryl sutures. Total weight 558 grams. Then we turned our attention to the left side. The breast was smaller and inspecting supervisor. We outlined again the nipple areolar complex at 45 mm in diameter. Resection was carried out. Inferolateral portion of the breast was resected. The pedicle was in good vascular condition. It was de-epithelized. The wound was irrigated. Exparel 8 mL was given into the pectoralis muscle. Then the mound was recreated at its new position at 21 cm from the sternal notch. Vertical incision was at 9 cm, equal to the right side. It was closed with 3-0 Monocryl sutures. The excess tissue was measured, tailored, and resected, creating the horizontal scar, which was also closed with 3-0 Monocryl sutures and a V-lock suture on both sides. The 10 mm Amos-Norwood drain was placed through the lateral portion of the horizontal incision, and then nipple areolar complex was sutured in place with 3-0 and 4-0 Monocryl as well as a 5-0 plain gut sutures. Then we did tumescent infiltration in the lateral chest, and suction-assisted lipectomy was done on both lateral chests to eliminate that access fatty pad extension from the lateral breast. Prineo dressing and a Xeroform to the nipple. Surgery bra was applied. Patient was extubated in the operating room without any difficulty and transferred to the recovery room in stable condition. COLTON
== END 2020-02-16 12:35 | disposition home or self-care (01) ==
LOC: M SDC 05:58 → M MS5PR 13:35 → M SDC 02-16 12:35
PROVIDERS: ATTEND Plastic Surgery Surgery of the Hand
DX: N62 Hypertrophy of breast (principal); G47.30 Sleep apnea, unspecified; M79.7 Fibromyalgia; G43.909 Migraine, unspecified, not intractable, without status migrainosus; J45.909 Unspecified asthma, uncomplicated; Z79.899 Other long term (current) drug therapy; Z98.84 Bariatric surgery status; Z87.891 Personal history of nicotine dependence; Z91.030 Bee allergy status; Z88.0 Allergy status to penicillin; Z79.51 Long term (current) use of inhaled steroids
CPT/HCPCS: 19318; 81025; 88300; 88305; 94640; 96361; 96374; C9290; J0131; J0171; J1100; J1170; J1644; J2175; J2250; J2270; J2405; J2765; J3010

== ENCOUNTER → 2020-04-19 | Outpatient (CLI) | payer OTHER ==
[~2020-04-19] MED LIST changes: +CYAN500T14 PO; -CYAN500T8 PO; -MONT10TA4 PO; +MONT5TAB2 PO; +PERCOCET PO
== END ==
LOC: M LABSMTC 10:14
PROVIDERS: ATTEND Orthopaedic Surgery
DX: Z01.812 Encounter for preprocedural laboratory examination (principal); Z20.828 Contact with and (suspected) exposure to other viral communicable diseases

== ENCOUNTER → 2020-08-09 | Outpatient (REF) | payer OTHER ==
[~2020-08-09] MED LIST changes: +GABA-282 PO; -GABA-843 PO; +MONT10TA10 PO; -MONT5TAB2 PO
[2020-08-09 10:28] LABS: HEMATOCRIT 37.9 % (36.0-47.0); HEMOGLOBIN 11.7 g/dl (12.0-15.5); MEAN CORPUSCULAR HGB CONC 30.9 g/dl (32.0-36.5); PLATELET COUNT, AUTOMATED 379 10^3/uL (150-450); RED BLOOD COUNT 4.03 10^6/uL (4.00-5.40); WHITE BLOOD COUNT 6.9 10^3/uL (4.0-10.0)
[2020-08-09 11:01] LABS: BLOOD UREA NITROGEN 12 MG/DL (7-18); CALCIUM LEVEL 8.6 MG/DL (8.5-10.1); CARBON DIOXIDE LEVEL 30 MEQ/L (21-32); CHLORIDE LEVEL 108 MEQ/L (98-107); CREATININE FOR GFR 0.56 MG/DL (0.55-1.30); GLOMERULAR FILTRATION RATE > 60.0 (>51); GLUCOSE, FASTING 88 MG/DL (70-100); POTASSIUM SERUM 4.2 MEQ/L (3.5-5.1); SODIUM LEVEL 142 MEQ/L (136-145)
[2020-08-09 11:11] LABS: MALB URINE SIEMENS 29.8 MG/L
[2020-08-09 12:38] LABS: HEMOGLOBIN A1c 5.8 %
== END ==
LOC: M PLALAB 08:06
PROVIDERS: ATTEND Family Medicine
DX: D50.9 Iron deficiency anemia, unspecified (principal); E11.9 Type 2 diabetes mellitus without complications

== ENCOUNTER → 2020-09-21 | Outpatient (CLI) | payer SELFPAY | LOC: M LABSMTC 09:11 | PROVIDERS: ATTEND Pediatrics | DX: Z20.822 Contact with and (suspected) exposure to COVID-19 (principal) ==

== ENCOUNTER → 2020-09-29 | Outpatient (CLI) | payer SELFPAY | LOC: M LABSMTC 08:59 | PROVIDERS: ATTEND Pediatrics | DX: Z20.822 Contact with and (suspected) exposure to COVID-19 (principal) ==

== ENCOUNTER → 2021-09-01 | Outpatient (CLI) | payer OTHER ==
[~2021-09-01] MED LIST changes: -D31000TA2 PO; -MONT10TA10 PO; +MONT10TA97 PO; +VITA100093 PO
[2021-09-01 10:39] LABS: HEMATOCRIT 38.1 % (36.0-47.0); HEMOGLOBIN 12.4 g/dl (12.0-15.5); MEAN CORPUSCULAR HEMOGLOBIN 29.6 pg (27.0-33.0); MEAN CORPUSCULAR HGB CONC 32.5 g/dl (32.0-36.5); MEAN CORPUSCULAR VOLUME 90.9 fl (80.0-96.0); PLATELET COUNT, AUTOMATED 356 10^3/uL (150-450); RED BLOOD COUNT 4.19 10^6/uL (4.00-5.40)
[2021-09-01 10:43] LABS: HEMATOCRIT 38.1 % (36.0-47.0)
[2021-09-01 10:57] LABS: ALBUMIN 3.6 GM/DL (3.2-5.2); ALT/SGPT 26 U/L (12-78); BILIRUBIN,TOTAL 0.7 MG/DL (0.2-1.0); BLOOD UREA NITROGEN 22 MG/DL (7-18); CALCIUM LEVEL 9.1 MG/DL (8.5-10.1); CARBON DIOXIDE LEVEL 30 MEQ/L (21-32); CHLORIDE LEVEL 111 MEQ/L (98-107); CHOLESTEROL LEVEL 167 MG/DL (<200); CREATININE FOR GFR 0.61 MG/DL (0.55-1.30); FERRITIN 7 NG/ML (8-252); GLOMERULAR FILTRATION RATE > 60.0 (>51); GLUCOSE, FASTING 69 MG/DL (70-100); HDL CHOLESTEROL 53 MG/DL (>40); IRON (FE) 37 UG/DL (50-170); LDL CHOLESTEROL 104 MG/DL (<100); NON-HDL-C 114 MG/DL; PERCENT SATURATION 8.8 % (13.2-45.0); PHOSPHORUS LEVEL 3.8 MG/DL (2.5-4.9); POTASSIUM SERUM 4.3 MEQ/L (3.5-5.1); SODIUM LEVEL 143 MEQ/L (136-145); TOTAL 25(OH) VITAMIN D 28.3 NG/ML (30.0-100.0); TOTAL IRON BINDING CAPACITY 421 UG/DL (250-450); TOTAL PROTEIN 6.9 GM/DL (6.4-8.2); TRIGLYCERIDES LEVEL 50 MG/DL (<150)
[2021-09-01 11:33] LABS: CREATININE, URINE 87.6 MG/DL; MAU/CREAT RATIO 11.4 MCG/MG (0.0-30.0)
[2021-09-01 13:57] LABS: HEMOGLOBIN A1c 5.5 %
[2021-09-02 18:06] LABS: VITAMIN B12 LEVEL 321 PG/ML (247-911)
== END ==
LOC: M PLALAB 07:38
PROVIDERS: ATTEND Family Medicine
DX: E11.9 Type 2 diabetes mellitus without complications (principal); K90.9 Intestinal malabsorption, unspecified; E78.5 Hyperlipidemia, unspecified; E55.9 Vitamin D deficiency, unspecified

== ENCOUNTER → 2021-09-06 | Outpatient (CLI) | payer OTHER | LOC: M LAB 09:28 | PROVIDERS: ATTEND Family Medicine | DX: Z13.29 Encounter for screening for other suspected endocrine disorder (principal); Z83.49 Family history of other endocrine, nutritional and metabolic diseases ==

== ENCOUNTER → 2021-09-29 | Outpatient (CLI) | payer OTHER ==
[~2021-09-29] MED LIST changes: +AIMO70IN SC; +ALBU8.5H INH; +CETI-24 PO; +D3 M5000 PO; +VITMTA PO; +ZOLP10TA2 PO
== END ==
LOC: M LABSMTC 09:23
PROVIDERS: ATTEND Anesthesiology
DX: Z01.812 Encounter for preprocedural laboratory examination (principal); Z20.822 Contact with and (suspected) exposure to COVID-19

== ENCOUNTER 2021-10-03 07:12 | Day surgery (SDC) | payer OTHER ==
[~2021-10-03] VITALS: Ht 170.2 cm; Wt 328.4 kg
[~2021-10-03 07:12] MED LIST changes: +ALBU2.5V10 INH; -ALBU83IN INH; +LIDOCAINE 2% 100MG/5ML SDV (FOR ANES.) As Ordered ONE; +NS 1,000 ML IV ONE; +propofoL 200 MG/20 ML VIAL As Ordered ONE
[2021-10-03 09:09] VITALS: BP 100/51
== END 2021-10-03 09:19 | disposition home or self-care (01) ==
LOC: M OPP 07:12
PROVIDERS: ATTEND Internal Medicine Gastroenterology
DX: Z12.11 Encounter for screening for malignant neoplasm of colon (principal); Z86.010 Personal history of colon polyps; D12.2 Benign neoplasm of ascending colon; K64.8 Other hemorrhoids; Q43.8 Other specified congenital malformations of intestine; Z98.84 Bariatric surgery status; M79.7 Fibromyalgia; Z97.5 Presence of (intrauterine) contraceptive device; Z79.899 Other long term (current) drug therapy; Z88.0 Allergy status to penicillin; Z91.030 Bee allergy status; Z87.891 Personal history of nicotine dependence

== ENCOUNTER → 2021-12-20 | Outpatient (CLI) | payer OTHER, BC ==
[~2021-12-20] MED LIST changes: -LIDOCAINE 2% 100MG/5ML SDV (FOR ANES.) As Ordered ONE; -NS 1,000 ML IV ONE; -propofoL 200 MG/20 ML VIAL As Ordered ONE
[2021-12-20 11:47] LABS: PERCENT SATURATION 16.5 % (13.2-45.0)
[2021-12-22 07:35] LABS: TOTAL 25(OH) VITAMIN D 35.3 NG/ML (30.0-100.0)
== END ==
LOC: M LAB 10:14
PROVIDERS: ATTEND Student in an Organized Health Care Education/Training Program
DX: K90.9 Intestinal malabsorption, unspecified (principal)

== ENCOUNTER → 2022-02-13 | Outpatient (CLI) | payer OTHER, BC ==
[2022-02-13 17:13] LABS: BASO % 0.6 % (0.0-1.0); EOS # 0.1 10^3/uL (0.0-0.5); EOS % 1.4 % (0.0-3.0); HEMATOCRIT 39.5 % (36.0-47.0); HEMOGLOBIN 12.8 g/dl (12.0-15.5); LYMPH # 2.8 10^3/uL (1.5-5.0); LYMPH % 42.9 % (24.0-44.0); MEAN CORPUSCULAR HEMOGLOBIN 31.1 pg (27.0-33.0); MEAN CORPUSCULAR HGB CONC 32.4 g/dl (32.0-36.5); MEAN CORPUSCULAR VOLUME 95.9 fl (80.0-96.0); MONO # 0.5 10^3/uL (0.0-0.8); MONO % 7.5 % (2.0-8.0); NEUTROPHILS # 3.1 10^3/uL (1.5-8.5); NEUTROPHILS % 47.3 % (36.0-66.0); PLATELET COUNT, AUTOMATED 341 10^3/uL (150-450); RED BLOOD COUNT 4.12 10^6/uL (4.00-5.40); WHITE BLOOD COUNT 6.5 10^3/uL (4.0-10.0)
[2022-02-13 17:44] LABS: BLOOD UREA NITROGEN 17 MG/DL (7-18); CALCIUM LEVEL 9.3 MG/DL (8.5-10.1); CARBON DIOXIDE LEVEL 27 MEQ/L (21-32); CHLORIDE LEVEL 106 MEQ/L (98-107); CREATININE FOR GFR 0.62 MG/DL (0.55-1.30); GLOMERULAR FILTRATION RATE > 60.0 (>51); GLUCOSE, FASTING 92 MG/DL (70-100); POTASSIUM SERUM 4.1 MEQ/L (3.5-5.1); SODIUM LEVEL 140 MEQ/L (136-145)
== END ==
LOC: M WUC 11:26
PROVIDERS: ATTEND Student in an Organized Health Care Education/Training Program
DX: Z01.818 Encounter for other preprocedural examination (principal)

== ENCOUNTER → 2022-02-26 | Outpatient (CLI) | payer OTHER, BC ==
[~2022-02-26] MED LIST changes: +A-10CAP2 PO; +AIMO70IN2 SC; +CHRO1CAP3 PO
== END ==
LOC: M LABSMTC 09:39
PROVIDERS: ATTEND Anesthesiology
DX: Z01.812 Encounter for preprocedural laboratory examination (principal); Z11.52 Encounter for screening for COVID-19

== ENCOUNTER 2022-03-03 07:37 | Observation (INO) | payer OTHER, BC ==
[~2022-03-03] VITALS: Ht 170.2 cm; Wt 88.9 kg
[2022-03-03] MEDS ORDERED: LR 1,000 ML IV SCH ×2 (07:50→13:35)
[2022-03-03] MEDS ORDERED: BUPIVACAINE LIPOSOME/PF 1.3% 20ML VIAL (13.3MG/ML)(EXPAREL) As Ordered ONE (08:59)
[2022-03-03] MEDS ORDERED: BUPIVACAINE HCL 0.25% 10ML VIAL As Ordered ONE (08:59)
[2022-03-03] MEDS ORDERED: ONDANSETRON 4MG 2ML VIAL As Ordered ONE (09:01)
[2022-03-03] MEDS ORDERED: dexameTHASONE 4 MG/ML 1ML VIAL (J1100 PER 1MG) As Ordered ONE (09:01)
[2022-03-03] MEDS ORDERED: propofoL 200 MG/20 ML VIAL As Ordered ONE (09:01)
[2022-03-03] MEDS ORDERED: MIDAZOLAM INJ 2MG/2ML VIAL (J2250 PER 1MG) As Ordered ONE (09:01)
[2022-03-03] MEDS ORDERED: LIDOCAINE 2% 100MG/5ML SDV (FOR ANES.) As Ordered ONE (09:01)
[2022-03-03] MEDS ORDERED: ROCURONIUM BROMIDE 50 MG/5 ML VIAL As Ordered ONE ×3 (09:01→11:23)
[2022-03-03] MEDS ORDERED: fentaNYL 250 MCG/5 ML INJECTION As Ordered ONE (09:01)
[2022-03-03] MEDS ORDERED: diphenhydrAMINE 50MG/ML VIAL (J1200) As Ordered ONE (09:01)
[2022-03-03] MEDS ORDERED: SEVOFLURANE INHAL SOLN 250 ML BTL As Ordered ONE (09:09)
[2022-03-03] MEDS ORDERED: HEPARIN SOD (PORCINE) 5000UNITS/ML 1ML VIAL/SYRINGE SQ ONE (09:10)
[2022-03-03] MEDS ORDERED: CLINDAMYCIN 900 MG in IV 1 EA IV ONE ×2 (09:10→13:35)
[2022-03-03] MEDS ORDERED: ePHEDrine SULFATE 25 MG/5 ML(5MG/ML) SYRINGE As Ordered ONE (09:58)
[2022-03-03] MEDS ORDERED: SUGAMMADEX SODIUM 500 MG/5 ML VIAL (BRIDION) As Ordered ONE (10:33)
[2022-03-03] MEDS ORDERED: ACETAMINOPHEN 1000MG 100ML IV BTL (OFIRMEV) (J0131 PER 10MG) As Ordered ONE (10:33)
[2022-03-03] MEDS ORDERED: HYDROmorphone HCL 2MG/ML 1ML VIAL As Ordered ONE (10:34)
[2022-03-03] MEDS ORDERED: METOCLOPRAMIDE INJ 10MG/2ML VIAL (J2765 PER 1) As Ordered ONE (11:03)
[2022-03-03] MEDS ORDERED: GENTAMICIN SULF 80MG/2ML VIAL As Ordered ONE (11:17)
[2022-03-03] MEDS ORDERED: fentaNYL 100 MCG/2 ML INJECTION IV PRN (13:35)
[2022-03-03] MEDS ORDERED: METOCLOPRAMIDE INJ 10MG/2ML VIAL (J2765 PER 1) IV PRN (13:35)
[2022-03-03] MEDS ORDERED: oxyCODONE 5MG TAB PO PRN (13:35)
[2022-03-03] MEDS ORDERED: HYDROMORPHONE HCL 0.5 MG/ 0.5 ML SYRINGE (J1170 PER 1) IV PRN (13:35)
[2022-03-03] MEDS ORDERED: ONDANSETRON 4MG 2ML VIAL IV PRN ×2 (13:35)
[2022-03-03] MEDS ORDERED: ACETAMINOPHEN TAB 650MG DOSE (2X325MG) PO PRN (13:35)
[2022-03-03 15:30] VITALS: BP 119/69
[2022-03-03] MEDS: PERCOCET 5MG/325MG TAB PO PRN ×2 (15:41→19:43)
[2022-03-03] MEDS: LR 1,000 ML IV SCH (15:41)
[2022-03-03 16:00] VITALS: BP 115/70
[2022-03-03 17:00] VITALS: BP 113/68
[2022-03-03 18:00] VITALS: BP 103/64
[2022-03-03 19:00] VITALS: BP 107/67
[2022-03-03 20:00] VITALS: BP 106/62
[2022-03-03] MEDS ORDERED: PERCOCET 5MG/325MG TAB PO ONE (22:45)
[2022-03-04 02:00] VITALS: BP 108/57
[2022-03-04] MEDS: PERCOCET 5MG/325MG TAB PO PRN ×2 (02:03→09:50)
[2022-03-04] MEDS: LR 1,000 ML IV SCH (05:34)
[2022-03-04 06:00] VITALS: BP 113/65
[2022-03-04] MEDS ORDERED: PERC5TAB12 PO (08:56)
== END 2022-03-04 14:45 | disposition home or self-care (01) ==
LOC: M SDC 07:37 → M MS5PR 07:38
PROVIDERS: ADMIT Plastic Surgery Surgery of the Hand; ATTEND Plastic Surgery Surgery of the Hand
DX: L90.5 Scar conditions and fibrosis of skin (principal); Z98.84 Bariatric surgery status; M79.7 Fibromyalgia; G43.909 Migraine, unspecified, not intractable, without status migrainosus; J45.909 Unspecified asthma, uncomplicated; Z79.51 Long term (current) use of inhaled steroids; Z79.899 Other long term (current) drug therapy; Z91.030 Bee allergy status; Z88.0 Allergy status to penicillin; Z87.891 Personal history of nicotine dependence
CPT/HCPCS: 13101; 13102; 81025; 88300; 88302; 96361; 96365; C9290; J0131; J1100; J1170; J1200; J1580; J1644; J2250; J2405; J2765; J3010

== ENCOUNTER → 2022-06-09 | Outpatient (CLI) | payer OTHER ==
[~2022-06-09] MED LIST changes: +PERC5TAB12 PO
== END ==
LOC: M WHC 07:04
PROVIDERS: ATTEND Student in an Organized Health Care Education/Training Program
DX: Z12.31 Encounter for screening mammogram for malignant neoplasm of breast (principal); Z80.41 Family history of malignant neoplasm of ovary

== ENCOUNTER → 2022-10-08 | Outpatient (CLI) | payer OTHER ==
[2022-10-08 12:45] LABS: BASO # 0.1 10^3/uL (0.0-0.2); BASO % 0.8 % (0.0-1.0); EOS # 0.2 10^3/uL (0.0-0.5); EOS % 2.4 % (0.0-3.0); HEMOGLOBIN 12.2 g/dl (12.0-15.5); LYMPH # 2.9 10^3/uL (1.5-5.0); LYMPH % 44.2 % (24.0-44.0); MEAN CORPUSCULAR HEMOGLOBIN 30.8 pg (27.0-33.0); MEAN CORPUSCULAR VOLUME 93.4 fl (80.0-96.0); MONO # 0.6 10^3/uL (0.0-0.8); MONO % 8.8 % (2.0-8.0); NEUTROPHILS # 2.9 10^3/uL (1.5-8.5); NEUTROPHILS % 43.6 % (36.0-66.0); PLATELET COUNT, AUTOMATED 359 10^3/uL (150-450); RED BLOOD COUNT 3.96 10^6/uL (4.00-5.40); WHITE BLOOD COUNT 6.6 10^3/uL (4.0-10.0)
[2022-10-08 13:04] LABS: HEMOGLOBIN A1c 5.6 % (4.0-6.0)
[2022-10-08 13:14] LABS: IRON (FE) 56 UG/DL (50-170)
[2022-10-08 13:15] LABS: ALBUMIN 3.8 G/DL (3.2-5.2); ALKALINE PHOSPHATASE 98 U/L (46-116); ALT/SGPT 47 U/L (7.0-40); AST/SGOT 34 U/L (<34); BILIRUBIN,TOTAL 0.3 MG/DL (0.3-1.2); BLOOD UREA NITROGEN 11 MG/DL (9-23); CALCIUM LEVEL 9.3 MG/DL (8.5-10.1); CARBON DIOXIDE LEVEL 27 MMOL/L (20-31); CHLORIDE LEVEL 106 MMOL/L (98-107); CHOLESTEROL LEVEL 186 MG/DL (<200); CHOLESTEROL RISK RATIO 2.78 (<5); GLOMERULAR FILTRATION RATE > 60.0 (>51); GLUCOSE, FASTING 99 MG/DL (60-100); HDL CHOLESTEROL 66.9 MG/DL (>40); LDL CHOLESTEROL 103.1 MG/DL (<100); NON-HDL-C 119.1 MG/DL; PERCENT SATURATION 13.8 % (13.2-45.0); POTASSIUM SERUM 4.4 MMOL/L (3.5-5.1); SODIUM LEVEL 140 MMOL/L (136-145); TOTAL IRON BINDING CAPACITY 407 UG/DL (250-425); TRIGLYCERIDES LEVEL 80 MG/DL (<150)
[2022-10-08 13:16] LABS: VITAMIN B12 LEVEL 387 PG/ML (211-911)
[2022-10-08 13:17] LABS: TOTAL 25(OH) VITAMIN D 27.9 NG/ML (20.0-100.0)
[2022-10-08 13:22] LABS: FOLATE > 24.00 NG/ML (>5.4)
== END ==
LOC: M WUC 09:13
PROVIDERS: ATTEND Student in an Organized Health Care Education/Training Program
DX: Z98.84 Bariatric surgery status (principal); D50.9 Iron deficiency anemia, unspecified; E11.9 Type 2 diabetes mellitus without complications

== ENCOUNTER → 2022-12-08 | Outpatient (CLI) | payer OTHER ==
[~2022-12-08] MED LIST changes: -HYDR200T3; +HYDR200T46
== END ==
LOC: M WHC 07:00
PROVIDERS: ATTEND Obstetrics & Gynecology
DX: N95.1 Menopausal and female climacteric states (principal)

== ENCOUNTER → 2023-01-13 | Outpatient (CLI) | payer OTHER ==
[~2023-01-13] MED LIST changes: +ISOVUE-300 61% 100ML VIAL As Ordered ONE; +LIDOCAINE 1% MDV 20ML VIAL As Ordered ONE; +ROPIvacaine 0.5% 30ML VIAL As Ordered ONE; +TRIAMCINOLONE ACETONIDE SUSP 40MG/ML 1ML VIAL As Ordered ONE
== END ==
LOC: M RAD 15:29
PROVIDERS: ATTEND Orthopaedic Surgery
DX: M25.512 Pain in left shoulder (principal); M19.012 Primary osteoarthritis, left shoulder
CPT/HCPCS: 20610; 77002; J2795; J3301; Q9967

== ENCOUNTER → 2023-02-24 | Outpatient (CLI) | payer OTHER ==
[~2023-02-24] MED LIST changes: -ISOVUE-300 61% 100ML VIAL As Ordered ONE; -LIDOCAINE 1% MDV 20ML VIAL As Ordered ONE; -ROPIvacaine 0.5% 30ML VIAL As Ordered ONE; -TRIAMCINOLONE ACETONIDE SUSP 40MG/ML 1ML VIAL As Ordered ONE
== END ==
LOC: M PLAIMG 06:48
PROVIDERS: ATTEND Chiropractor
DX: M51.17 Intervertebral disc disorders with radiculopathy, lumbosacral region (principal); M47.896 Other spondylosis, lumbar region; M99.03 Segmental and somatic dysfunction of lumbar region

== ENCOUNTER → 2023-06-17 | Outpatient (CLI) | payer OTHER | LOC: M WHC 07:01 | PROVIDERS: ATTEND Obstetrics & Gynecology | DX: Z12.31 Encounter for screening mammogram for malignant neoplasm of breast (principal) ==

== ENCOUNTER → 2023-06-24 | Outpatient (CLI) | payer OTHER ==
[~2023-06-24] MED LIST changes: +PROHANCE 279.3MG/ML 15ML VIAL ONE; +PROHANCE 279.3MG/ML 5ML VIAL ONE
== END ==
LOC: M PLAIMG 07:33
PROVIDERS: ATTEND Nurse Practitioner
DX: M54.50 Low back pain, unspecified (principal); R93.7 Abnormal findings on diagnostic imaging of other parts of musculoskeletal system; M51.36 Other intervertebral disc degeneration, lumbar region; G89.29 Other chronic pain; M48.061 Spinal stenosis, lumbar region without neurogenic claudication; M47.816 Spondylosis without myelopathy or radiculopathy, lumbar region
CPT/HCPCS: 72158; A9576

== ENCOUNTER → 2023-12-30 | Outpatient (CLI) | payer OTHER ==
[~2023-12-30] MED LIST changes: -PROHANCE 279.3MG/ML 15ML VIAL ONE; -PROHANCE 279.3MG/ML 5ML VIAL ONE
[2023-12-30 20:04] LABS: FOLLICLE STIMULATING HORMONE 47.2 mIU/ML; LUTEINIZING HORMONE 28.9 mIU/ML
[2023-12-30 20:05] LABS: ESTRADIOL < 19.0 PG/ML
[2023-12-30 20:06] LABS: CORTISOL BASELINE 2.4 UG/DL (4.3-22.4)
[2023-12-31 08:09] LABS: PROGESTERONE < 0.21 NG/ML
[2024-01-02 02:08] LABS: SEX HORMONE BINDING GLOBULIN 40 nmol/L (14-73)
== END ==
LOC: M LAB 16:01
PROVIDERS: ATTEND Obstetrics & Gynecology
DX: N95.1 Menopausal and female climacteric states (principal); E34.9 Endocrine disorder, unspecified; F52.0 Hypoactive sexual desire disorder

== ENCOUNTER → 2024-02-18 | Outpatient (CLI) | payer OTHER ==
[~2024-02-18] MED LIST changes: +GABA-1172 PO; -GABA-282 PO
[2024-02-18 15:26] LABS: FOLLICLE STIMULATING HORMONE 26.7 mIU/ML; LUTEINIZING HORMONE 16.2 mIU/ML
[2024-02-18 15:27] LABS: ESTRADIOL 42.3 PG/ML; PROGESTERONE < 0.21 NG/ML
== END ==
LOC: M LAB 14:13
PROVIDERS: ATTEND Obstetrics & Gynecology
DX: N95.1 Menopausal and female climacteric states (principal); E34.9 Endocrine disorder, unspecified; R53.83 Other fatigue

== ENCOUNTER → 2024-04-19 | Outpatient (CLI) | payer OTHER ==
[~2024-04-19] MED LIST changes: -CYCL5TAB PO; +CYCL5TAB4 PO
[2024-04-19 18:57] LABS: PROGESTERONE < 0.21 NG/ML
[2024-04-19 18:58] LABS: FOLLICLE STIMULATING HORMONE 26.5 mIU/ML; LUTEINIZING HORMONE 12.3 mIU/ML
[2024-04-19 18:59] LABS: ESTRADIOL 33.2 PG/ML
== END ==
LOC: M LAB 16:56
PROVIDERS: ATTEND Obstetrics & Gynecology
DX: N95.1 Menopausal and female climacteric states (principal); E34.9 Endocrine disorder, unspecified; R53.83 Other fatigue

== ENCOUNTER → 2024-06-23 | Outpatient (CLI) | payer OTHER | LOC: M WHC 09:45 | PROVIDERS: ATTEND Advanced Practice Midwife | DX: Z12.31 Encounter for screening mammogram for malignant neoplasm of breast (principal); Z13.820 Encounter for screening for osteoporosis; M85.89 Other specified disorders of bone density and structure, multiple sites ==

== ENCOUNTER → 2024-06-28 | Outpatient (CLI) | payer OTHER ==
[2024-06-28 17:12] LABS: FOLLICLE STIMULATING HORMONE 10.2 mIU/ML
[2024-06-28 17:13] LABS: ESTRADIOL 48.8 PG/ML; LUTEINIZING HORMONE 4.2 mIU/ML
[2024-06-29 06:44] LABS: PROGESTERONE 2.87 NG/ML
== END ==
LOC: M LAB 15:48
PROVIDERS: ATTEND Obstetrics & Gynecology
DX: N95.1 Menopausal and female climacteric states (principal); E34.9 Endocrine disorder, unspecified; R53.83 Other fatigue

== ENCOUNTER → 2024-07-28 | Outpatient (CLI) | payer OTHER | LOC: M PLARAD 12:41 | PROVIDERS: ATTEND Orthopaedic Surgery Hand Surgery | DX: S83.232A Complex tear of medial meniscus, current injury, left knee, initial encounter (principal); M17.12 Unilateral primary osteoarthritis, left knee; Y93.9 Activity, unspecified; Y92.9 Unspecified place or not applicable ==

== ENCOUNTER → 2025-03-09 | Outpatient (CLI) | payer OTHER ==
[~2025-03-09] MED LIST changes: -AMBI5TAB PO; +CHOL50006 PO; -D3 M5000 PO; +ZOLP-532 PO; +ZOLP10TA11 PO; -ZOLP10TA2 PO
== END ==
LOC: M RAD 16:13
PROVIDERS: ATTEND Obstetrics & Gynecology
DX: N95.0 Postmenopausal bleeding (principal)